=== PATIENT | male | born 1990 | race Caucasian/White ===

== ENCOUNTER 2021-05-06 08:28 | Emergency (ER) | payer SELFPAY ==
[2021-05-06] MEDS ORDERED: Lidocaine Viscous Sol 2% 15 ml UD Cup ONE (09:01)
[2021-05-06] MEDS ORDERED: Clindamycin 150 MG CAP ONE (09:15)
[2021-05-06] MEDS ORDERED: HYDROcodone/Acetaminophen 5/325 mg Tablet ONE (09:15)
[2021-05-06] MEDS ORDERED: Ibuprofen 800 MG TAB ONE (09:15)
== END 2021-05-06 09:35 | disposition home or self-care (01) ==
LOC: MADERS 08:28
DX: K04.7 Periapical abscess without sinus (principal); K02.9 Dental caries, unspecified
CPT/HCPCS: 41800

== ENCOUNTER 2021-07-12 14:08 | Emergency (ER) | payer SELFPAY ==
[2021-07-12] MEDS ORDERED: Ondansetron ODT 4 MG TAB ONE (14:29)
[2021-07-13 00:26] LABS: SARS-CoV-2 PCR by NAA Not Detected (NotDetected)
== END 2021-07-12 14:33 | disposition home or self-care (01) ==
LOC: MADERS 14:08
DX: A08.4 Viral intestinal infection, unspecified (principal); J06.9 Acute upper respiratory infection, unspecified; Z20.822 Contact with and (suspected) exposure to COVID-19
CPT/HCPCS: 99284; Q0162; U0003; U0005

== ENCOUNTER 2024-01-25 04:21 | Emergency (ER) | payer OTHER, SELFPAY ==
[2024-01-25] MEDS ORDERED: Tetracaine 0.5% PF 4 ML BOT ONE (04:40)
[2024-01-25] MEDS ORDERED: Fluorescein Opthalmic Strip ONE (04:41)
[2024-01-25] MEDS ORDERED: Ibuprofen 800 MG TAB ONE (04:47)
[2024-01-25] MEDS ORDERED: Acetaminophen 500 MG TAB ONE (04:47)
== END 2024-01-25 05:13 | disposition home or self-care (01) ==
LOC: MADERS 04:21
DX: H16.133 Photokeratitis, bilateral (principal); F17.210 Nicotine dependence, cigarettes, uncomplicated
CPT/HCPCS: 99282

== ENCOUNTER 2024-10-14 09:56 | Emergency (ER) | payer OTHER, SELFPAY ==
[2024-10-14] MEDS ORDERED: Ibuprofen 600 MG TAB ONE (11:05)
== END 2024-10-14 11:27 | disposition home or self-care (01) ==
LOC: MADERS 09:56
DX: M70.41 Prepatellar bursitis, right knee (principal); F17.220 Nicotine dependence, chewing tobacco, uncomplicated; F17.210 Nicotine dependence, cigarettes, uncomplicated
CPT/HCPCS: 99283

== ENCOUNTER 2025-06-26 11:19 | Emergency (ER) | payer SELFPAY ==
[2025-06-26 11:56] LABS: #Basophils 0.2 thou/uL (0.0-0.2); #Eosinophils 0.2 thou/uL (0.0-0.7); #Lymphocytes 3.3 thou/uL (1.20-3.40); #Monocytes 0.6 thou/uL (0.11-0.59); #Neutrophils 4.6 thou/uL (1.40-6.50); %Basophils 1.7 % (0.0-1.0); %Eosinophils 2.3 % (0.0-10.0); %Lymphocytes 37.2 % (21.0-51.0); %Monocytes 6.7 % (0.0-10.0); %Neutrophils 52.1 % (42.0-75.0); Hematocrit 46.8 % (42.0-52.0); Hemoglobin 15.6 g/dL (14.0-18.0); Mean Corpuscular Hemoglobin 31.7 pg (27.0-31.0); Mean Corpuscular Volume 95.4 fl (78.0-98.0); Platelet Count 243 10x3/uL (130-400); Red Blood Cell (RBC) Count 4.91 mill/uL (4.70-6.10); White Blood Cell (WBC) Count 8.9 10x3/uL (4.8-10.8)
[2025-06-26] MEDS ORDERED: Acetaminophen 500 MG TAB ONE (11:57)
[2025-06-26 12:03] LABS: Bicarbonate (HCO3v) 29.4 mmol/L (22.0-28.0); CO2 Tension (PvCO2) 53.6 mmHg (42.0-51.0); Calcium, Ionized 1.23 mmol/L (1.15-1.33); Chloride 108 mmol/L (98-107); Hemoglobin - Calc 16.8 g/dL (14.0-18.0); Potassium 4.0 mmol/L (3.5-5.1); Sodium 144 mmol/L (138-145); T. Carbon Dioxide 31.1 mmol/L (22.0-28.0); vO2 Saturation-calc 85.5 % (60.0-85.0)
[2025-06-26 12:10] LABS: ALT (SGPT) 23 U/L (Less than 45); AST (SGOT) 30 U/L (11-34); Albumin 4.8 g/dL (3.1-4.5); Alkaline Phosphatase 67 U/L (40-110); Anion Gap 15 mmol/L (10-20); BUN (Urea Nitrogen) 17 mg/dL (8.9-20.6); Bilirubin, Total 0.4 mg/dL (0.3-1.2); CK (CPK) 372 U/L (30-200); Calc. Creatinine Clearance 0 mL/min (70-130); Calcium 9.2 mg/dL (7.8-10.44); Carbon Dioxide 23 mmol/L (22-29); Chloride 107 mmol/L (98-107); Globulin 3.0 g/dL (2.4-3.5); Glucose 98 mg/dL (70-105); Lipase 8 U/L (8-78); Potassium 4.0 mmol/L (3.5-5.1); Sodium 141 mmol/L (136-145)
== END 2025-06-26 12:55 | disposition home or self-care (01) ==
LOC: MADERS 11:19
DX: E86.0 Dehydration (principal); R11.2 Nausea with vomiting, unspecified; R29.700 NIHSS score 0; F17.210 Nicotine dependence, cigarettes, uncomplicated; W89.0XXA Exposure to welding light (arc), initial encounter; Y99.0 Civilian activity done for income or pay
CPT/HCPCS: 71045; 80053; 82330; 82435; 82550; 82803; 83690; 84132; 84295; 85014; 85025; 93005; 96360; J7030

== ENCOUNTER 2025-07-16 03:02 | Emergency (ER) | payer SELFPAY ==
[2025-07-16] MEDS ORDERED: Fluorescein Opthalmic Strip ONE (03:14)
[2025-07-16] MEDS ORDERED: Tetracaine 0.5% PF 4 ML BOT ONE (03:15)
[2025-07-16] MEDS ORDERED: HYDROcodone/Acetaminophen 10/325 mg Tablet ONE (03:37)
== END 2025-07-16 03:42 | disposition home or self-care (01) ==
LOC: MADERS 03:02
DX: H16.133 Photokeratitis, bilateral (principal); F17.210 Nicotine dependence, cigarettes, uncomplicated